=== PATIENT | female | born 1975 | race Caucasian/White ===

== ENCOUNTER 2017-02-24 13:15 | Emergency (ER) | payer OTHER ==
[~2017-02-24] VITALS: Ht 170.2 cm; Wt 103.9 kg
[2017-02-24 14:24] LABS: ABSOLUTE BASOPHIL COUNT 0 /CUMM (0.0-0.2); ABSOLUTE EOSINOPHIL COUNT 0.1 /CUMM (0.0-0.7); ABSOLUTE GRANULOCYTE CT 3.6 /CUMM (1.4-6.5); ABSOLUTE LYMPH COUNT 1.8 /CUMM (1.2-3.4); ABSOLUTE MONOCYTE COUNT 0.2 /CUMM (0.10-0.60); BASOPHIL % 0.5 % (0.0-2.0); EOSINOPHIL % 2.2 % (0-5); GRANULOCYTE % 61.7 % (42.2-75.2); HEMATOCRIT 43.5 % (37-47); MEAN CORPUSCULAR HGB 29.8 PG (27.0-31.0); MEAN CORPUSCULAR HGB CONC 33.3 G/DL (33.0-37.0); MEAN CORPUSCULAR VOLUME 89.5 FL (81.0-99.0); MEAN PLATELET VOLUME 6.9 FL (7.4-10.4); PLATELET COUNT 319 /CUMM (130-400); RBC DISTRIBUTION WIDTH 12.9 % (11.5-14.5); RED BLOOD CELL CT 4.86 /CUMM (4.20-5.40); WHITE BLOOD CELL COUNT 5.8 /CUMM (4.8-10.8)
--- NOTE | 2017-02-24 14:29 | ED HEADACHE COMPLAINT ---
History of Present Illness General Chief Complaint: Headache Stated Complaint: NIXON XS 1 WEEK WITH DIZZINESS Source: patient, family Exam Limitations: no limitations Vital Signs & Intake/Output Vital Signs & Intake/Output Vital Signs Date Time Temp Pulse Resp B/P B/P Pulse O2 O2 Flow FiO2 Mean Ox Delivery Rate 02/24 1656 97.6 46 20 115/54 100 Room Air 02/24 1532 97.3 46 18 110/53 100 Room Air 02/24 1325 97.9 60 18 117/80 96 Room Air Allergies Coded Allergies: latex (Intermediate, RASH 02/24/17) Uncoded Allergies: TEGADERM (Intermediate, RASH 02/24/17) Reconcile Medications Albuterol Sulfate (Proair Hfa) 90 MCG HFA.AER.AD 2 PUF INH Q4-6 PRN PRN SHORTNESS OF BREATH (Reported) Calcium (Elemental-Fr Calcarb) (Calcium) (Unknown Strength) TABLET (Unknown Dose) PO DAILY SUPPLEMENT (Reported) Clonidine HCl 0.1 MG TABLET 1 TAB PO QPM UNKNOWN (Reported) Cyclobenzaprine HCl 10 MG TABLET 1 TAB PO TID PRN MUSCLE (Reported) Epinephrine (Epipen) 0.3 MG/0.3 ML AUTO.INJCT 1 INJ DAILY PRN ALLERGIES ( Reported) Famotidine/Ca Carb/Mag Hydrox (Pepcid Complete Tablet Chew) 10 MG-800 MG-165 MG TAB.CHEW 1 TAB PO DAILY GI (Reported) Loratadine (Claritin) 10 MG TABLET 1 TAB PO DAILY ALLERGIES (Reported) Melatonin (Unknown Strength) TABLET (Unknown Dose) PO QPM SLEEP (Reported) Multivitamin (Daily Multiple Vitamin) 1 EACH TABLET 1 TAB PO DAILY VITAMIN SUPPORT (Reported) Olopatadine HCl (Pataday) 0.2 % DROPS 1 GTT OPH DAILY ALLERGIES (Reported) Ropinirole HCl 1 MG TABLET 1 TAB PO QPM UNKNOWN (Reported) Sumatriptan Succinate (Imitrex) 50 MG TABLET 1 TAB PO DAILY PRN HEADACHE ( Reported) Topiramate 25 MG TABLET 1-2 TAB PO BID HEADACHE (Reported) Tramadol HCl 50 MG TABLET 1 TAB PO BIDP PRN PAIN (Reported) Triage Note: 41 STATES HX OF VERTIGO AND MIGRANES. PT C/O NAUSEA, NO VOMITING. Triage Nurses Notes Reviewed? yes : No Patient currently breastfeeds: No HPI: 41 yo F PMH Chiari Malformation, Migraines presenting with headaches. Intermittent headache for the last 2-3 days, waxing and waning severity, present more often than not, moderate to severe intensity, bilateral occipital and left temporal, throbbing quality. Associated photophobia, nausea without emesis, intermittent vertiginous dizziness. Headache is consistent with previous migraines in pain quality and location, the patient notes she has not had a headache this severe in quite some time. Last fevers, chills, neck pain, neck stiffness, chest pain, shortness of breath, abdominal pain, urinary symptoms, or focal neurologic symptoms. (BERYL JAMES MD) Past History Travel History Traveled to [place] past 21 day No Medical History Any Pertinent Medical History? see below for history Neurological: migraine Respiratory: asthma Gastrointestinal: GASTRIC SLEEVE Musculoskeletal: REYNAUDS ARTHRITIS RESTLESS LEG Psychiatric: ADD Surgical History Surgical History: none Psychosocial History What is your primary language Japanese Tobacco Use: Never used Family History Hx Contributory? No (BERYL JAMES MD) Review of Systems Review of Systems Constitutional: Reports: no symptoms. Eyes: Reports: photophobia. Denies: blindness, blurred vision. Ears, Nose, Throat, Mouth: Reports: no symptoms. Respiratory: Reports: no symptoms. Cardiovascular: Reports: no symptoms. Gastrointestinal/Abdominal: Reports: no symptoms. Genitourinary: Reports: no symptoms. Musculoskeletal: Reports: no symptoms. Skin: Reports: no symptoms. Neurological/Psychological: Reports: headache. Denies: tingling, tremors, weakness. Hematologic/Endocrine: Reports: no symptoms. Endocrine: Reports: no symptoms. Immunologic/Allergic: Reports: no symptoms. All Other Systems: Reviewed and Negative (BERYL JAMES MD) Physical Exam Physical Exam General Appearance: alert, awake, anxious, moderate distress Head: atraumatic, normal appearance Eyes: Bilateral: PERRL, EOMI. Ears, Nose, Throat: normal pharynx, normal ENT inspection Neck: normal inspection, supple, full range of motion Respiratory: normal breath sounds, no respiratory distress, quiet respiration Cardiovascular: regular rate/rhythm, normal peripheral pulses Gastrointestinal: normal bowel sounds, soft, non-tender Cranial Nerves: normal hearing, normal speech, PERRL Coordination/Gait: normal finger to nose, normal gait Comments: Neurologic: Cranial nerves II through XII intact, no nystagmus with an gaze in all directions, motor strength 5/5 in all extremities, no sensory deficits, [id number] and [id number] testing normal, stable gait without assistance Core Measures Severe Sepsis Present: No Septic Shock Present: No (JACOB KENDALL,BERYL) Progress Differential Diagnosis: IC mass/tumor, intracranial Hem., meningitis, migraine NIXON, subarach. Hem. Plan of Care: Orders Procedure Date/time Status Add-on Test (ER Only) 02/24 1414 Active HUMAN BETA HCG SCREEN 02/24 1400 Complete CBC WITHOUT DIFFERENTIAL 02/24 1400 Complete BASIC METABOLIC PANEL 02/24 1400 Complete Laboratory Tests 02/24/17 1414: Anion Gap 7, Estimated GFR > 60, BUN/Creatinine Ratio 8.8, Glucose 87, Calcium 9.3, Total Beta HCG NEGATIVE, CBC w Diff NO MAN DIFF REQ, RBC 4.86, MCV 89.5, MCH 29.8, RDW 12.9, MPV 6.9 L, Gran % 61.7, Lymphocytes % 31.7, Monocytes % 3.9 , Eosinophils % 2.2, Basophils % 0.5, Absolute Granulocytes 3.6, Absolute Lymphocytes 1.8, Absolute Monocytes 0.2, Absolute Eosinophils 0.1, Absolute Basophils 0, PUBS MCHC 33.3 Physician MDM: 41 yo F PMH Chiari malformation, migraines presenting wth headache. VSS, neurologicd exam as above. DDx: Migraine, hydrocephalus, tension headache, less likely intercranial hemorrhage. Medicated with Reglan, Benadryl, Toradol, 4 mg dexamethasone with complete resolution of headache. CT head without evidence of edema or bleeding around Chiari malformation, no hydrocephalus. Discharged return to care precautions, plan to follow up with neurologist the next 2-3 days. (BERYL JAMES MD) Departure Departure Disposition: HOME OR SELF CARE Condition: Stable Clinical Impression Primary Impression: Headache Referrals: MANI KENDALL,IJEOMA (PCP/Family) Additional Instructions: Take Tylenol, ibuprofen, or Imitrex for recurrent headache pain. Follow-up with your neurologist the next 2-3 days. Return to the emergency department for any new, worsening, or concerning symptoms. Departure Forms: Customer Survey General Discharge Information (BERYL JAMES MD) PA/GOLF CART REPAIRER Co-Sign Statement Statement: ED Attending supervision documentation- [] I saw and evaluated the patient. I have also reviewed all the pertinent lab results and diagnostic results. I agree with the findings and the plan of care as documented in the PA's/GOLF CART REPAIRER's documentation. [X] I have reviewed the ED Record and agree with the PA's/GOLF CART REPAIRER's documentation. [] Additions or exceptions (if any) to the PAs/GOLF CART REPAIRER's note and plan are summarized below: [] (ZOFIA KENDALL,MORALES Wetzel)
[2017-02-24] MEDS ORDERED: TRAMADOL HCL50 M1 PO (14:33)
[2017-02-24] MEDS ORDERED: PROAIR HFA8.5 GM INH (14:33)
[2017-02-24] MEDS ORDERED: TOPIRAMATE25 M2 PO (14:34)
[2017-02-24] MEDS ORDERED: CYCLOBENZAPRINE10 M1 PO (14:34)
[2017-02-24] MEDS ORDERED: PATADAY2.5 ML OPH (14:34)
[2017-02-24] MEDS ORDERED: EPIPEN0.3 MG/0.1 (14:35)
[2017-02-24] MEDS ORDERED: DAILY MULTIPLE1 EACH PO (14:35)
[2017-02-24] MEDS ORDERED: MELATONIN3 M4 PO (14:35)
[2017-02-24] MEDS ORDERED: CALCIUM600 M3 PO (14:36)
[2017-02-24] MEDS ORDERED: IMITREX50 M1 PO (14:36)
[2017-02-24] MEDS ORDERED: CLARITIN10 M1 PO (14:36)
[2017-02-24] MEDS ORDERED: ROPINIROLE HCL1 MG PO (14:37)
[2017-02-24] MEDS ORDERED: CLONIDINE HCL0.1 MG PO (14:37)
[2017-02-24] MEDS ORDERED: PEPCID COMPLET1 EACH PO (14:38)
--- NOTE | 2017-02-24 15:26 | CT SCAN REPORT ---
EXAMINATION: CT HEAD WITHOUT CONTRAST CLINICAL INFORMATION: Headache. History of Chiari malformation COMPARISON: None TECHNIQUE: Contiguous axial imaging was performed from the skull base to vertex without intravenous administration of contrast. DLP: 647.92 mGy-cm FINDINGS: There is no hydrocephalus. There is no evidence of acute intracranial hemorrhage or territorial infarction. No abnormal mass effect or midline shift is seen. Tapia to white matter differentiation is well preserved. No extra-axial fluid collections are identified. The ventricles are normal in size. There is no abnormal attenuation within the brain parenchyma. The osseous structures and soft tissues are normal. The mastoid air cells and visualized portions of the paranasal sinuses are well aerated. IMPRESSION: No acute intracranial pathology. No hydrocephalus.
[2017-02-24 16:56] VITALS: BP 115/54
== END 2017-02-24 17:04 ==
LOC: ERH 13:15
PROVIDERS: Student in an Organized Health Care Education/Training Program
DX: R51 Headache (principal)
CPT/HCPCS: 96374; 96375; J1200; J1885; J2765